=== PATIENT | male | born 1950 | race Caucasian/White ===

== ENCOUNTER 2016-08-09 17:05 | Inpatient (IN) | payer MEDICARE ==
[2016-08-09 17:26] VITALS: BMI 44.5
[2016-08-09] MEDS ORDERED: ACETAMINOPHEN 325 MG/TAB TABLET PO ONE (17:29)
[2016-08-09] MEDS ORDERED: Albuterol/Ipratropium Neb 3 ML NEB NEB ONE (17:42)
[2016-08-09 17:43] LABS: ALLEN'S TEST PASS; BEb 4.5 (+/- 2); TCO2 34.1 MMOL/L (23-27)
[2016-08-09 17:44] LABS: ABG Draw Site RRA
[2016-08-09 17:48] LABS: AUTOMATED BASOPHIL 0.6 % (0-2); AUTOMATED EOSINOPHIL 1.5 % (0-5); AUTOMATED LYMPH 10.7 % (17-44); AUTOMATED MONOCYTE 12.8 % (3-10); AUTOMATED NEUTROPHIL 74.4 % (45-76); MPV 8.4 fL (7.4-10.4)
[2016-08-09 17:59] LABS: PARTIAL THROMB. TIME 24.8 SEC (22-35)
--- NOTE | 2016-08-09 18:05 | EDPRACDOC ---
- General Information Chief Complaint: Dyspnea/Resp distress Stated Complaint: CONGESTION HX CONGESTIVE HEART FAILURE Time Seen by Provider: 08/09/16 17:27 Information Source: Patient Mode Of Arrival: Car Home Medications: Home Medications Amlodipine Besylate 10 mg PO DAILY 11/23/12 Clopidogrel Bisulfate [Plavix] 75 mg PO DAILY 09/11/15 Furosemide [Lasix] 20 mg PO DAILY PRN 09/11/15 Nitroglycerin [Nitrostat] 0.4 mg SL Q5M PRN 09/11/15 Aspirin (Enteric Coated) [Ecotrin] 81 mg PO DAILY 12/28/15 Pravastatin [Pravachol] 40 mg PO TUFR 12/28/15 Carvedilol [Coreg] 12.5 mg PO BID 05/21/16 Ibuprofen Tablet [Motrin] 600 mg PO Q6H PRN 05/21/16 HydrALAZINE (Cardiovascular) [Apresoline] 75 mg PO BID 08/09/16 Allergies/Adverse Reactions: Allergies Allergy/AdvReac Type Severity Reaction Status Date / Time MERCURECHROME Allergy See Uncoded 08/09/16 17:23 Comments METHIOLADE Allergy See Uncoded 08/09/16 17:23 Comments - History of Present Illness Onset: FEW DAYS HPI: PT HAS BEEN SOB WITH A COUGH FOR THE PAST FEW DAYS. THE PT SAID THAT HE HAS TAKEN EVERYTHING OTC THAT HE COULD THINK OF AND IS NOT GETTING BETTER. Shortness of Breath: Moderate Relevant History: Reports: None Cough: Reports: Non-productive Rhinorrhea: Reports: Clear Ear Symptoms: Reports: None SOB Worsens with: Reports: Exertion SOB Improves with: Reports: Nothing Associated Signs and symptoms: Reports: Cough, Fever, Nasal Symptoms ED Past Medical History - Patient Medical History Cardiac History: Reports: Coronary Artery Disease, Hypertension, Heart Attack ( x5), Cardiac Catheterization, Hypercholesterolemia GI/ History: Reports: Renal (Kidney) Cancer (RIGHT), Kidney (Renal Surgery) ( RIGHT NEPHRECTOMY) Musculoskeletal History: Reports: Arthritis, Osteoarthritis Psychological History: Denies: Depression Systemic History: Reports: Cancer (RIGHT KIDNEY) Surgical History: Reports: Angioplasty, Cardiac Catheterization, Hernia Surgery (UMBILICAL), Tonsillectomy/Adnoidectomy, Other (NEPHRECTOMY) - Family Medical History Reports: Hypertension (SON). Denies: Diabetes, Cancer, Stroke, Cardiac Disorders - Social Medical History Smoking Status: Never smoker ETOH: None Substance Abuse: None Lives With: Spouse Lives In: Home EDM Review of Systems - Review of Systems ROS Negative Except as Marked: Yes All systems reviewed and were negative except as marked Constitutional: Chills, Fever Respiratory: Cough, Shortness of Breath, Wheezing - Physical Exam Constitutional: Alert (Awake), Distress Oriented to: Time, Person, Place Last recorded Vital Signs: Last Vital Signs Temp 101.4 F H 08/09/16 17:23 Pulse 82 08/09/16 17:39 Resp 22 08/09/16 17:39 BP 179/83 08/09/16 17:39 Pulse Ox 82 L 08/09/16 17:39 Oxygen Pulse Oxygen Saturation 82 O2 Device Room Air Oxygen Flow Rate Fraction of Inspired Oxygen ( FIO2) - HEENT Head: Normal ( normocephalic) Eye Exam: Normal (PERRL, EOMI, Sclera white) Oropharynx: Membranes Dry ENT EAC: Normal TMJ: Normal Nose: No Symptoms Reported (septum midline) Neck: Normal (FROM, trachea at midline) - Respiratory/Cardiovascular Respiratory: Accessory Muscle Use, Diminished, Rhonchi, Tachypnea, Wheezes Cardiovascular: Tachycardia - GI Auscultation: Normal (NABS) Palpation: Normal (Soft,No rebound or guarding, non distended) Tenderness: Non tender Smith's Sign: Negative - Musculoskeletal Back: Normal (Non-Tender) Extremities: Normal (Normal tone, Pulses 2+ No cyanosis or edema, FROM) - Integumentary Skin: Normal, Warm, Dry Lymphatics: Normal (no adenopathy) - Neurologic Memory Impaired: Normal Motor Function: Normal (Normal tone, Pulses 2+ No cyanosis or edema, FROM) Cranial Nerve: Normal (CN II-X11 intact sensation, strength 5/5) Cerebellar: Normal Mood Description: Normal Thought: Coherent Perception: Normal ED SOB MDM - Results Result Diagrams: 08/09/16 17:34 08/09/16 17:34 Results: WBC 7.8 xk/uL (3.8-10.8) 08/09/16 17:34 RBC 4.92 xM/uL (4.70-6.10) 08/09/16 17:34 Hgb 14.8 g/dL (14.0-18.0) 08/09/16 17:34 Hct 46.1 % (42-52) 08/09/16 17:34 MCV 94 fL (80-94) 08/09/16 17:34 MCH 30.1 pg (27-32) 08/09/16 17:34 MCHC 32.1 g/dl (33-36) L 08/09/16 17:34 RDW 15.4 % (11.5-14.5) H 08/09/16 17:34 Plt Count 149 xk/uL (130-400) 08/09/16 17:34 MPV 8.4 fL (7.4-10.4) 08/09/16 17:34 Neut % (Auto) 74.4 % (45-76) 08/09/16 17:34 Lymph % (Auto) 10.7 % (17-44) L 08/09/16 17:34 [place] % (Auto) 12.8 % (3-10) H 08/09/16 17:34 Eos % (Auto) 1.5 % (0-5) 08/09/16 17:34 Baso % (Auto) 0.6 % (0-2) 08/09/16 17:34 Absolute Neuts (auto) 5.77 xk/uL (1.7-8.2) 08/09/16 17:34 Absolute Lymphs (auto) 0.78 xk/uL (0.65-4.75) 08/09/16 17:34 Puncture Site Rra 08/09/16 17:41 pH 7.330 pH UNITS (7.35-7.45) L 08/09/16 17:41 pCO2 61.0 mmHg (35-45) H 08/09/16 17:41 pO2 40.0 mmHg (80-100) L* 08/09/16 17:41 HCO3 32.2 MMOL/L (22-26) H 08/09/16 17:41 Total CO2 34.1 MMOL/L (23-27) H 08/09/16 17:41 Base Excess 4.5 (+/- 2) H 08/09/16 17:41 FiO2 % 21 08/09/16 17:41 Specimen Drawn By Ivis 08/09/16 17:41 Lab Results 08/09/16 08/09/16 17:41 17:34 WBC 7.8 RBC 4.92 Hgb 14.8 Hct 46.1 MCV 94 MCH 30.1 MCHC 32.1 L RDW 15.4 H Plt Count 149 MPV 8.4 Neut % (Auto) 74.4 Lymph % (Auto) 10.7 L [place] % (Auto) 12.8 H Eos % (Auto) 1.5 Baso % (Auto) 0.6 Absolute Neuts (auto) 5.77 Absolute Lymphs (auto) 0.78 Puncture Site Rra pH 7.330 L pCO2 61.0 H pO2 40.0 L* HCO3 32.2 H Total CO2 34.1 H Base Excess 4.5 H FiO2 % 21 Specimen Drawn By Dared - EKG EKG #1 EKG Time: 17:32 -: Yes EKG interpreted by me Rate: bpm: 80 [place]: Normal Rhythm: NSR Block: None Hypertrophy: None ST: Normal Comparison: 12/28/15 - Diagnostic Imaging Chest Image interpreted by: Radiologist Diagnostic Imaging Comments: . Bilateral lower lobe infiltrates, likely infectious. 2. Small mediastinal lymph nodes may be reactive. 3. Coronary artery disease. 4. Thoracic spondylosis. - Departure Yes I personally saw and evaluated the patient. Disposition: Admit IP To This Hospital Condition: Serious Final Diagnosis: Bilateral pneumonia, Fever, Acute respiratory failure with hypoxia Education/Counseling Given To: Patient Education/Counseling Given Regarding: Diagnosis, Treatment Referrals: Tatiana Cartagena NP [Primary Care Provider] - One Week Decision to Admit Time: 18:44 Decision to admit date: 08/09/16 Decision to admit: from ED - Physician Consulted Hospitalist Provider Called: Charles Castelan
[2016-08-09] MEDS ORDERED: Levofloxacin 750 mg/150 ml D5W 750 MG/150 ML RTU IV ONE (18:06)
--- NOTE | 2016-08-09 18:06 | DIRPT ---
CLINICAL DATA: Shortness of breath. EXAM: PORTABLE CHEST 1 VIEW COMPARISON: 12/28/2015 FINDINGS: Cardiomediastinal silhouette is normal. Mediastinal contours appear intact. There is no evidence of focal airspace consolidation, pleural effusion or pneumothorax. Osseous structures are without acute abnormality. Soft tissues are grossly normal. IMPRESSION: No active disease. Electronically Signed By: Bharat Goldman M.D. On: 08/09/2016 18:03
[2016-08-09 18:15] LABS: BLOOD UREA NITROGEN 26 MG/DL (9-20); CALC CORRECTED 9.4 MG/DL (8.4-10.2); CALCIUM 9.3 MG/DL (8.4-10.2); CALCULATED OSMOLALITY 283 MOs/Kg (270-290); CHLORIDE 104 mEq/L (98-107); GLUCOSE 147 MG/DL (70-99); SODIUM LEVEL 143 mEq/L (137-146); TOTAL PROTEIN 7.4 G/DL (6.3-8.2)
[2016-08-09 18:36] LABS: LEUKOCYTES/URINE NEG (NEGATIVE); NITRITE/URINE NEG (NEGATIVE); RBC/URINE 0-2 (0-2); URINE OCCULT BLOOD 1+ (NEG/TRACE); WBC/URINE 0-2 (0-2)
--- NOTE | 2016-08-09 18:39 | DIRPT ---
CLINICAL DATA: Shortness of breath and congestion for 3 days. EXAM: CT CHEST WITHOUT CONTRAST TECHNIQUE: Multidetector CT imaging of the chest was performed following the standard protocol without IV contrast. COMPARISON: Chest x-ray 08/09/2016 FINDINGS: Heart: Coronary artery calcifications are present. No pericardial effusion. Heart size is upper normal. Vascular structures: There is atherosclerotic calcification of the thoracic aorta. No aneurysm. Mediastinum/thyroid: The visualized portion of the thyroid gland has a normal appearance. Right peritracheal node is 11 mm in diameter. Small pre carinal node is 9 mm. No significant hilar adenopathy. Lungs/Airways: Within the lower lobes bilaterally, there are airspace filling opacities associated with air bronchograms in most likely representing infectious infiltrates. Right middle lobe calcified granuloma is present. Upper abdomen: Gallbladder is present. Chest wall/osseous structures: There is moderate to marked mid thoracic spondylosis. No suspicious lesions. IMPRESSION: 1. Bilateral lower lobe infiltrates, likely infectious. 2. Small mediastinal lymph nodes may be reactive. 3. Coronary artery disease. 4. Thoracic spondylosis. Electronically Signed By: Gloria Stubbs M.D. On: 08/09/2016 18:36
[2016-08-09] MEDS ORDERED: NITROGLYCERINE 0.4 MG TAB SL PRN (18:59)
[2016-08-09] MEDS ORDERED: FUROSEMIDE 20 MG TAB PO PRN (18:59)
--- NOTE | 2016-08-09 18:59 | HISTPHYS ---
- Chief Complaint Shortness of breath - History of Present Illness This is a pleasant 66-year-old male with a history of congestive heart failure who is being admitted the hospital [facility] due to bilateral pneumonia. The patient tells me that he has been in usual state of health until about 2 days ago, when he started to cough thick kadi colored sputum, and was short of breath with any kind of exertion. He has chronic lower extremity edema, this has remained stable. He denies any fevers or chills at home, no nausea or vomiting or rashes on the skin. No sick contacts. No pain in the abdomen. In particular to his coughing, he also noticed that he has very short of breath with exertion, and also feels very weak. Today, he took the garbage out and resultant of his driveway, he thought he was so weak he would not be able to make it back home. No therapies prior prior to arrival. - Medical History Cardiac History: Reports: Coronary Artery Disease, Hypertension, Heart Attack ( x5), Cardiac Catheterization, Hypercholesterolemia GI/ History: Reports: Renal (Kidney) Cancer (RIGHT), Kidney (Renal Surgery) ( RIGHT NEPHRECTOMY) Musculoskeletal History: Reports: Arthritis, Osteoarthritis Systemic History: Reports: Cancer (RIGHT KIDNEY) Psychological History: Denies: Depression - Surgical History Reports: Angioplasty, Cardiac Catheterization, Hernia Surgery (UMBILICAL), Tonsillectomy/Adnoidectomy, Other (NEPHRECTOMY) - Medictions/Allergies Allergies MERCURECHROME Allergy (Uncoded 08/09/16 17:23) See Comments CAUSED SORES TO GET INFECTED METHIOLADE Allergy (Uncoded 08/09/16 17:23) See Comments CAUSED SORES TO GET INFECTED Home Medications Amlodipine Besylate 10 mg PO DAILY 11/23/12 Clopidogrel Bisulfate [Plavix] 75 mg PO DAILY 09/11/15 Furosemide [Lasix] 20 mg PO DAILY PRN 09/11/15 Nitroglycerin [Nitrostat] 0.4 mg SL Q5M PRN 09/11/15 Aspirin (Enteric Coated) [Ecotrin] 81 mg PO DAILY 12/28/15 Pravastatin [Pravachol] 40 mg PO TUFR 12/28/15 Carvedilol [Coreg] 12.5 mg PO BID 05/21/16 Ibuprofen Tablet [Motrin] 600 mg PO Q6H PRN 05/21/16 HydrALAZINE (Cardiovascular) [Apresoline] 75 mg PO BID 08/09/16 - Family History Reports: Hypertension (SON). Denies: Diabetes, Cancer, Stroke, Cardiac Disorders - Social History Smoking Status: Never smoker - Review of Systems Yes All systems reviewed and were negative except as marked (And as mentioned in HPI above) - Physical Exam Vital Signs: Initial Vitals Temperature 101.4 F H 08/09/16 17:23 Pulse Rate 78 08/09/16 17:23 Respiratory Rate 24 08/09/16 17:23 Blood Pressure 178/83 08/09/16 17:23 Pulse Oxygen Saturation 78 L 08/09/16 17:23 Constitutional: Alert (Awake, Fully oriented, well appearing. No apparent distress), Distress Oriented to: Time, Person, Place Exam: Able to speak 1 or 2 sentences before getting winded. - HEENT Head: Normal (normocephalic,atraumatic, trachea midline) Eye: Normal (EOMI, Sclera white) Oropharynx: Normal (moist) Nose: No Symptoms Reported (without discharge or bleeding) Respiratory: Diminished. negative: Rhonchi, Wheezes Cardiovascular: Normal (RRR, no murmurs, rubs or gallops) - GI Palpation: Normal (soft, non distended and nontender) - Musculoskeletal Extremities: Edema (He has 1 to 2+ tight pitting edema in his bilateral lower extremities. He and his tell me this is very normal for him.) - Integumentary Skin: Normal (no rashes or lesions) - Neurologic Cranial Nerve: Normal (CN II-XII intact) Mood Description: Normal (Fully oriented and appropiate affect) - Focused CV Perfusion Exam Vital Signs: Last Vital Signs Temp 101.4 F H 08/09/16 17:23 Pulse 73 08/09/16 18:33 Resp 20 08/09/16 18:33 BP 148/72 08/09/16 18:33 Pulse Ox 94 08/09/16 18:33 - Lab Results Laboratory Tests 08/09/16 08/09/16 08/09/16 17:34 17:34 17:34 WBC 7.8 Hgb 14.8 Hct 46.1 Plt Count 149 INR 1.0 pH pCO2 pO2 Potassium 4.2 BUN 26 H Creatinine 1.60 H 08/09/16 17:41 WBC Hgb Hct Plt Count INR pH 7.330 L pCO2 61.0 H pO2 40.0 L* Potassium BUN Creatinine - Diagnostic Findings ct chest: 1. Bilateral lower lobe infiltrates, likely infectious. 2. Small mediastinal lymph nodes may be reactive. 3. Coronary artery disease. 4. Thoracic spondylosis. - Assessment (1) Bilateral pneumonia J18.9 - PNEUMONIA, UNSPECIFIED ORGANISM Acute Qualifiers: Pneumonia type: P Aspiration pneumonia type: A Lung location: L Chest x-ray was clear, but CT scan of the chest shows bilateral pneumonia. Patient is being admitted to the hospital to telemetry floor, with supplemental oxygen as needed to be weaned as tolerated. He will receive IV Levaquin, respiratory therapy consult and pneumonia education. Note that evidence based care pneumonia order set has been utilized. Will plan on rechecking a chest x- ray in the morning. (2) CHF (congestive heart failure) I50.9 - HEART FAILURE, UNSPECIFIED Acute Qualifiers: Congestive heart failure type: C Congestive heart failure chronicity: C Continue current medications which she takes at home. No evidence of acute CHF exacerbation. Will be cautious with fluid administration. (3) Acute respiratory failure with hypoxia J96.01 - ACUTE RESPIRATORY FAILURE WITH HYPOXIA Acute Due to bilateral pneumonia. (4) Fever R50.9 - FEVER, UNSPECIFIED Acute Qualifiers: Fever type: F Encounter type: E Fever of 101 here in the emergency department. (5) Hyperlipidemia E78.5 - HYPERLIPIDEMIA, UNSPECIFIED Acute Qualifiers: Hyperlipidemia type: H Continue home statin. (6) Hypertension I10 - ESSENTIAL (PRIMARY) HYPERTENSION Acute Qualifiers: Hypertension type: H Continue home antihypertensive medications.
[2016-08-09] MEDS ORDERED: ONDANSETRON HCL 4 MG/2 ML VIAL IV PRN (19:00)
[2016-08-09] MEDS: ENOXAPARIN 80 MG/0.8 ML PFS SQ SCH (21:02)
[2016-08-09] MEDS: CARVEDILOL 12.5 MG TAB PO SCH (21:04)
[2016-08-09] MEDS: ACETAMINOPHEN 325 MG/TAB TABLET PO PRN (23:27)
[2016-08-10 07:06] LABS: MPV 8.4 fL (7.4-10.4)
[2016-08-10 07:09] LABS: BLOOD UREA NITROGEN 25 MG/DL (9-20); CALCIUM 8.8 MG/DL (8.4-10.2); CALCULATED OSMOLALITY 278 MOs/Kg (270-290); CHLORIDE 103 mEq/L (98-107); GLUCOSE 115 MG/DL (70-99); SODIUM LEVEL 142 mEq/L (137-146)
--- NOTE | 2016-08-10 09:01 | DIRPT ---
CLINICAL DATA: Four day history of shortness of breath and cough EXAM: CHEST 2 VIEW COMPARISON: CT scan of the chest and chest x-ray of August 09, 2015 FINDINGS: The lungs are adequately inflated. Patchy alveolar infiltrates in both lower lobes are observed. There is no pleural effusion. The heart is top-normal in size. The pulmonary vascularity is not engorged. There is mild soft tissue fullness in the paratracheal regions which is stable. There is mild multilevel degenerative disc disease with endplate spurring in the thoracic spine. IMPRESSION: Bibasilar pneumonia. The findings are slightly more conspicuous today. Electronically Signed By: Christiano Davis M.D. On: 08/10/2016 08:58
[2016-08-10] MEDS: AMLODIPINE 10 MG TAB PO SCH (09:06)
[2016-08-10] MEDS: CLOPIDOGREL 75 MG TAB PO SCH (09:06)
[2016-08-10] MEDS: CARVEDILOL 12.5 MG TAB PO SCH ×2 (09:06→20:26)
[2016-08-10] MEDS: ACETAMINOPHEN 325 MG/TAB TABLET PO PRN (12:35)
[2016-08-10] MEDS: Albuterol/Ipratropium Neb 3 ML NEB NEB PRN ×2 (14:27→23:09)
[2016-08-10] MEDS ORDERED: OXYCODONE HCL 5 MG TABLET PO PRN (15:28)
--- NOTE | 2016-08-10 15:31 | GENMEDPROG ---
Subjective Note: Patient in bed responsive follows commands. Visibly short of breath with audible wheezes and rhonchi. Coughing producing fair amount of thick brownish sputum. Dyspneic with minimal physical exertion. Denies any hemoptysis. Notes Reviewed: Yes Events from last night noted and discussed with Clinical Staff Current Medication List: Reviewed Currently: Reports: Cough, Wheezing, VIZCAINO, SOB, Sputum, Reflux Sx DVT Prophylaxis: Yes - Physical Examination Vital Signs and I&O: Last Vital Signs Temp 98.0 F 08/10/16 14:00 Pulse 67 08/10/16 15:17 Resp 08/10/16 14:00 BP 109/52 L 08/10/16 14:00 Pulse Ox 93 08/10/16 14:07 Oxygen Pulse Oxygen Saturation 93 O2 Device Nasal Cannula Oxygen Flow Rate 4 Fraction of Inspired Oxygen ( FIO2) Intake & Output 08/07/16 08/08/16 08/09/16 08/10/16 23:59 23:59 23:59 23:59 Intake Total 85 240 Output Total 450 575 Balance -365 -335 Patient's weight 153.496 kg General: Alert, Oriented x3, Cooperative, Moderate distress HEENT: Normal, PERRLA, EOMI, Anicteric Sclera Neck: Non-tender, Normal Trachea alignment, Limited range of motion, JVD Lymphatics: Normal Respiratory: Diminished, Rhonchi, Wheezes Cardiovascular: Regular rate, Normal S1, Normal S2, Murmurs GI: Normal bowel sounds, Soft, Non tender, No hepatospenomegaly, No masses Extremities/Musculoskeletal: Edema, Clubbing, Cyanosis, DJD Skin: Warm,Dry and Intact, No rashes, No breakdown Neurological: Normal speech, Cranial nerves 3-12 NL Psych/Mental Status: Anxious Lab/DI/Studies Reviewed: Allergies MERCURECHROME Allergy (Uncoded 08/09/16 17:23) See Comments CAUSED SORES TO GET INFECTED METHIOLADE Allergy (Uncoded 08/09/16 17:23) See Comments CAUSED SORES TO GET INFECTED Last Vital Signs Temp 98.0 F 08/10/16 14:00 Pulse 67 08/10/16 15:17 Resp 08/10/16 14:00 BP 109/52 L 08/10/16 14:00 Pulse Ox 93 08/10/16 14:07 08/10/16 06:10 08/10/16 06:10 Abnormal Lab Results 08/09/16 08/09/16 08/09/16 17:34 17:34 17:41 RBC Hgb Hct MCHC 32.1 L RDW 15.4 H Lymph % (Auto) 10.7 L [place] % (Auto) 12.8 H pH 7.330 L pCO2 61.0 H pO2 40.0 L* HCO3 32.2 H Total CO2 34.1 H Base Excess 4.5 H BUN 26 H Creatinine 1.60 H Estimated GFR (MDRD) 43 L Glucose 147 H Urine Protein Urine Occult Blood 08/09/16 08/10/16 08/10/16 18:10 06:10 06:10 RBC 4.48 L Hgb 13.5 L Hct 41.9 L MCHC 32.2 L RDW 15.2 H Lymph % (Auto) [place] % (Auto) pH pCO2 pO2 HCO3 Total CO2 Base Excess BUN 25 H Creatinine 1.50 H Estimated GFR (MDRD) 47 L Glucose 115 H Urine Protein 2+ H Urine Occult Blood 1+ H - Assessment (1) Acute respiratory failure with hypoxia Acute J96.01 - ACUTE RESPIRATORY FAILURE WITH HYPOXIA Comment/Plan: Continue supplemental O2 monitor pulmonary status. Repeat chest x-ray and ABG in the morning. (2) Bilateral pneumonia Acute J18.9 - PNEUMONIA, UNSPECIFIED ORGANISM Qualifiers: Pneumonia type: due to unspecified organism Aspiration pneumonia type: A Lung location: L Comment/Plan: Patient still profoundly hypoxic and severely symptomatic. Continue broad-spectrum antibiotics nebulized bronchodilators and aggressive pulmonary toileting. (3) CHF (congestive heart failure) Acute I50.9 - HEART FAILURE, UNSPECIFIED Qualifiers: Congestive heart failure type: unspecified congestive heart failure type Congestive heart failure chronicity: acute on chronic Qualified Code(s): I50.9 - Heart failure, unspecified Comment/Plan: Continue diuretic IV. Monitor fluid balance and weight. 2D echo will be obtained (4) Hypertension Chronic I10 - ESSENTIAL (PRIMARY) HYPERTENSION Qualifiers: Hypertension type: essential hypertension Qualified Code(s): I10 - Essential (primary) hypertension Comment/Plan: Continue home antihypertensive medications. (5) CKD (chronic kidney disease) stage 2, GFR 60-89 ml/min Chronic N18.2 - CHRONIC KIDNEY DISEASE, STAGE 2 (MILD) Comment/Plan: Single kidney. Monitor renal function avoid any nephrotoxins. (6) CAD (coronary artery disease) Acute I25.10 - ATHSCL HEART DISEASE OF [place] CORONARY ARTERY W/O ANG PCTRS Qualifiers: Coronary Disease-Associated Artery/Lesion type: [place] artery [place] vs. transplanted heart: [place] heart Associated angina: without angina Qualified Code(s): I25.10 - Atherosclerotic heart disease of [place] coronary artery without angina pectoris Comment/Plan: Continue home regimen of aspirin Plavix and Coreg. (7) Dyslipidemia Chronic E78.5 - HYPERLIPIDEMIA, UNSPECIFIED Comment/Plan: Continue statin Case Care Discussed with: Patient, Family, Nursing Staff, Respiratory Therapy, Blade Operator Education/Counseling Given To: Patient Education/Counseling Given Regarding: Diagnosis Total Time: 60 min . Critical Care: Yes Code: 291
[2016-08-10] MEDS ORDERED: FLUTICASONE PROPIONATE 16 GM BOT NAS SCH (16:00)
[2016-08-10] MEDS ORDERED: NS 500 ML IV ONE (17:20)
[2016-08-10] MEDS ORDERED: DEXTROSE 25 GM/50 ML PFS IV PRN (17:27)
[2016-08-10] MEDS ORDERED: GLUCOSE (ORAL GEL) 15 GM TUBE PO PRN (17:27)
[2016-08-10] MEDS ORDERED: GLUCAGON 1 MG VIAL SQ PRN (17:27)
[2016-08-10] MEDS: REGULAR INSULIN 100 UNITS/ML - 3 ML VIAL SQ SCH (17:45)
[2016-08-10] MEDS: Levofloxacin 750 mg/150 ml D5W 750 MG/150 ML RTU IV SCH (17:46)
[2016-08-10] MEDS: Furosemide 100 MG/10 ML VIAL IV SCH (17:48)
[2016-08-10] MEDS: METHYLPREDNISOLONE 125 MG/2 ML VIAL IV SCH (18:23)
[2016-08-10] MEDS: CEFTRIAXONE 1 GM in D5W 100 ML IV SCH (20:16)
[2016-08-10] MEDS: GUAIFENESIN 600 MG LA TAB PO SCH (20:24)
[2016-08-10] MEDS: ENOXAPARIN 80 MG/0.8 ML PFS SQ SCH (20:28)
[2016-08-10] MEDS: Albuterol/Ipratropium Neb 3 ML NEB NEB SCH (20:57)
[2016-08-10] MEDS ORDERED: PRAVASTATIN 40 MG TABLET PO SCH (21:00)
[2016-08-11] MEDS: METHYLPREDNISOLONE 125 MG/2 ML VIAL IV SCH ×5 (00:58→23:49)
[2016-08-11] MEDS: REGULAR INSULIN 100 UNITS/ML - 3 ML VIAL SQ SCH ×5 (00:59→23:48)
[2016-08-11] MEDS: Albuterol/Ipratropium Neb 3 ML NEB NEB SCH ×4 (01:12→20:30)
--- NOTE | 2016-08-11 03:44 | HIMCONS ---
DATE OF CONSULT: REQUESTING PHYSICIAN: Cali Gallardo MD REASON FOR CONSULTATION: Respiratory failure and sleep apnea. HISTORY OF PRESENT ILLNESS: The patient is a 66-year-old obese male who has past medical history significant for congestive heart failure and has not been doing well for few days prior to his admission when he started to having thick brownish phlegm with occasional blood streak in it. He has been having some lower extremity edema, has been having minimal fevers. No chills. No nausea, vomiting, diarrhea, or constipation. No abdominal pain, leg pains, or chest pains. He has been more and more short of breath, eventually ended up in the hospital where he was found to have bilateral basal pneumonia and was admitted. The patient has a history of snoring, witnessed apneas, waking up tired in the morning, history of fatigue, waking up with headache, etc. PAST MEDICAL HISTORY: Significant for coronary artery disease, hypertension, history of IA x5, cardiac catheterization, hypercholesterolemia, kidney cancer on the right side, status post right nephrectomy, history of arthritis, osteoarthritis, right kidney cancer surgery, and depression. PAST SURGICAL HISTORY: Angioplasty, cardiac catheterization, hernia surgery of umbilicus, tonsillectomy, adenoidectomy, nephrectomy. ALLERGIES: THE PATIENT IS ALLERGIC TO MERTHIOLATE AND MERCUROCHROME ALLERGIES. MEDICATIONS: In the chart were noted. FAMILY HISTORY: Significant for son having hypertension. SOCIAL HISTORY: There is no history of smoking, drinking, or drug abuse. REVIEW OF SYSTEMS: Detailed review of systems is negative except for as mentioned in the history of present illness. PHYSICAL EXAMINATION: VITAL SIGNS: Temperature is 98 degrees Fahrenheit, pulse is 66, respiratory rate is 22, blood pressure 109/52, pulse ox is 81% on 2 liters nasal cannula, went up to 93 on 3 L nasal cannula. CHEST: Bibasilar rales. No wheezing. HEART: S1, S2. Regular. No murmur. EXTREMITIES: No clubbing, cyanosis. The patient has 1+ bilateral ankle edema. ABDOMEN: Soft and nontender. Bowel sounds present. Hepatosplenomegaly is absent. NEURO: Grossly nonfocal. The patient moving all extremities. LABORATORY DATA: White count was 6.9, hemoglobin 13.5, hematocrit 41.9, platelets are 132. PT and INR within normal limits. Blood gas showed a pH of 7.36, pCO2 of 62, and PO2 was 40 on room air. Sodium 142, potassium 4.2, chloride 103, CO2 of 31, BUN is 25, creatinine is 1.5, glucose is 115. LFTs are within normal limits. IMAGING REPORTS: Chest x-ray and chest CAT scan was seen personally. The patient seems to have bilateral basal infiltrates. IMPRESSION: 1. Acute respiratory failure which is multifactorial including pneumonia. This is the major cause, but cannot rule out asthma and obesity causing obesity hypoventilation syndrome. 2. Significant risk of obstructive sleep apnea. 3. Multiple other medical issues. PLAN: The patient was admitted and placed on Levaquin 750 mg daily. I would add Rocephin to it. ( ) cultures for SPECT as negative. I had a prolonged discussion with the patient regarding his requirements for nebulizer use and DVT and GI prophylaxis. Also discussed with the patient regarding the risks for having sleep apnea including heart attacks and strokes and depression and car accidents, high blood pressure, etc. I think, the patient should have sleep study done and should be treated for obstructive sleep apnea, given the fact that he already has congestive heart failure and IA in the past. He agrees and understand and would be followed up with me in my office. I would continue other supportive care on this patient and start the patient on Rocephin as mentioned above. Thank you very much for the consultation and I will follow the patient with you. [id number]
[2016-08-11] MEDS: Furosemide 100 MG/10 ML VIAL IV SCH (04:31)
[2016-08-11] MEDS: PANTOPRAZOLE 40 MG TAB PO SCH (04:37)
[2016-08-11 07:23] LABS: MPV 8.3 fL (7.4-10.4)
[2016-08-11 07:31] LABS: BLOOD UREA NITROGEN 33 MG/DL (9-20); CALCULATED OSMOLALITY 284 MOs/Kg (270-290); CHLORIDE 101 mEq/L (98-107); GLUCOSE 207 MG/DL (70-99); SODIUM LEVEL 141 mEq/L (137-146)
--- NOTE | 2016-08-11 07:56 | PCM.PULM ---
Chief Complaint: Acute respiratory failure with hypoxia Bacterial pneumonia CHF Obstructive sleep apnea Hypoxia Uneventful overnight with no acute distress Patient in bed alert and responsive. Current complaints: SOB,VIZCAINO,cough,sputum,wheeze. Denies chest pain Medication list and notes reviewed:yes,Events from last night noted and discussed with Clinical Staff DVT prophylaxis:yes - Physical Examination Vital Signs and I&O: Last Vital Signs Temp 98.7 F 08/11/16 05:49 Pulse 73 08/11/16 05:49 Resp 20 08/11/16 05:49 BP 128/61 08/11/16 05:49 Pulse Ox 93 08/11/16 05:49 Oxygen Pulse Oxygen Saturation 93 O2 Device Nasal Cannula Oxygen Flow Rate 3 Fraction of Inspired Oxygen ( FIO2) Intake & Output 08/08/16 08/09/16 08/10/16 08/11/16 23:59 23:59 23:59 23:59 Intake Total 85 1080 329 Output Total 450 1700 500 Balance -365 -277 -113 Patient's weight 153.496 kg 153.966 kg General: Alert, Oriented x3, Cooperative, No acute distress, Well appearing, Well nourished, Obese Respiratory: Diminished, Rhonchi, Wheezes (Scattered bilateral) Cardiovascular: Regular rate, Regular rate and rhythm, Normal S1, No Gallops, Rubs/Murmurs, Normal S2, Good Pedal Pulses GI: Normal bowel sounds, Soft, Non tender, No hepatospenomegaly, No masses Extremities/Musculoskeletal: Normal pulses, Edema (trace BLEs) Skin: Warm,Dry and Intact, No rashes, No breakdown, No significant lesion Neurological: Normal Steady Gait, Normal speech, Strength at 5/5 X4 ext, Cranial nerves 3-12 NL Psych/Mental Status: Appropriate Result Diagrams: 08/11/16 07:07 08/11/16 07:07 Labs (last 24 hours): Laboratory Results - last 24 hr 08/10/16 08/11/16 08/11/16 17:44 00:56 05:15 WBC RBC Hgb Hct MCV MCH MCHC RDW Plt Count MPV Sodium Potassium Chloride Carbon Dioxide Anion Gap BUN Creatinine Estimated GFR (MDRD) Glucose POC Capillary Glucose 178 H 146 H 148 H Calculated Osmolality Calcium Magnesium 08/11/16 08/11/16 07:07 07:07 WBC 6.8 RBC 4.53 L Hgb 13.7 L Hct 41.9 L MCV 92 MCH 30.3 MCHC 32.8 L RDW 14.6 H Plt Count 160 MPV 8.3 Sodium 141 Potassium 4.3 Chloride 101 Carbon Dioxide 27 Anion Gap 17 H BUN 33 H Creatinine 1.70 H Estimated GFR (MDRD) 41 L Glucose 207 H POC Capillary Glucose Calculated Osmolality 284 Calcium 9.0 Magnesium 1.90 Lab/DI/Studies Reviewed: Microbiology 08/09/16 17:46 Sputum Gram Stain - Final 08/09/16 17:46 Sputum Sputum Culture - Final Normal oral/respiratory nell present 08/09/16 18:10 Urine - Clean Catch - Midstream Urine Culture - Preliminary <culture reincubated> Medications Carvedilol (Coreg) 12.5 mg PO BID [facility] Stop: 08/23/16 20:59 Last Admin: 08/10/16 20:26 Dose: 12.5 mg Clopidogrel Bisulfate (Plavix) 75 mg PO DAILY [facility] Stop: 08/24/16 08:59 Last Admin: 08/10/16 09:06 Dose: 75 mg Pantoprazole Sodium (Protonix) 40 mg PO 0600 [facility] Stop: 08/24/16 16:59 Last Admin: 08/11/16 04:37 Dose: 40 mg Acetaminophen (Tylenol Tablet) 650 mg PO Q6H PRN PRN Reason: Mild Pain or Fever Stop: 08/23/16 16:59 Last Admin: 08/10/16 12:35 Dose: 650 mg Albuterol/Ipratropium (Duoneb) 3 ml NEB Q2H PRN PRN Reason: Wheezing Stop: 08/23/16 16:59 Last Admin: 08/10/16 23:09 Dose: 3 ml Albuterol/Ipratropium (Duoneb) 3 ml NEB RTQ6 [facility] Stop: 08/24/16 16:59 Last Admin: 08/11/16 09:01 Dose: 3 ml Amlodipine Besylate (Norvasc) 10 mg PO DAILY [facility] Stop: 08/24/16 08:59 Last Admin: 08/10/16 09:06 Dose: 10 mg Ceftriaxone Sodium 1 gm/ (Dextrose) 100 mls @ 100 mls/hr IV Q24H [facility] Stop: 08/17/16 19:59 Last Admin: 08/10/16 20:16 Dose: 100 mls/hr Enoxaparin Sodium (Lovenox) 75 mg SQ Q24H [facility] Stop: 08/23/16 21:59 Last Admin: 08/10/16 20:28 Dose: 75 mg Furosemide (Lasix) 40 mg IV Q12H [facility] Stop: 08/24/16 17:59 Last Admin: 08/11/16 04:31 Dose: 40 mg Guaifenesin (Mucinex) 1,200 mg PO Q12 [facility] Stop: 08/24/16 16:59 Last Admin: 08/10/16 20:24 Dose: 1,200 mg Levofloxacin/Dextrose (Levaquin 750 Mg) 750 mg in 150 mls @ 100 mls/hr IV Q24H [facility] Stop: 08/17/16 17:59 Last Admin: 08/10/16 17:46 Dose: 100 mls/hr Insulin Human Regular (Humulin R) 0 units SQ Q6 [facility] PRN Reason: Protocol Stop: 08/24/16 16:59 Last Admin: 08/11/16 05:27 Dose: Not Given Methylprednisolone Sodium Succinate (Solu-Medrol) 60 mg IV Q6H [facility] Stop: 08/24/16 16:59 Last Admin: 08/11/16 04:32 Dose: 60 mg Pravastatin Sodium (Pravachol) 40 mg PO TUFR [facility] Stop: 08/24/16 20:59 Last Admin: 08/10/16 20:24 Dose: 40 mg Oxycodone HCl (Oxycodone Immediate Release (Oxyir)) 5 mg PO Q4H PRN PRN Reason: Moderate to Severe Pain Stop: 08/24/16 16:59 Ondansetron HCl (Zofran) 4 mg IV Q6H PRN PRN Reason: Nausea/Vomiting Stop: 08/23/16 16:59 Nitroglycerin (Ntg (Nitrostat Sublingual Tab)) 0.4 mg SL Q5M PRN PRN Reason: Chest Pain or Discomfort Stop: 08/23/16 18:58 - Assessment/Plan (1) Acute respiratory failure with hypoxia Acute J96.01 - ACUTE RESPIRATORY FAILURE WITH HYPOXIA Comment/Plan: Patient has been on Solu-Medrol 60 mg IV q.6 hours for his COPD exacerbation and bilateral basal infiltrates he is on Rocephin and Levaquin along with oxygen and BiPAP and nebulizers. I would cut down the Solu-Medrol to 40 mg IV q.6 hours patient is going to continue to be on Rocephin and Levaquin and would follow the patient closely for development of complications continue DVT and GI prophylaxis and ambulate the patient as needed patient is going to need an outpatient sleep study and pulmonary function test (2) Bilateral pneumonia Acute J18.9 - PNEUMONIA, UNSPECIFIED ORGANISM due to unspecified organism A L Comment/Plan: Continue Rocephin and Levaquin for now (3) CHF (congestive heart failure) Acute I50.9 - HEART FAILURE, UNSPECIFIED unspecified congestive heart failure type acute on chronic I50.9 - Heart failure, unspecified Comment/Plan: Continue gentle diuresis (4) Obstructive sleep apnea (adult) (pediatric) Acute G47.33 - OBSTRUCTIVE SLEEP APNEA (ADULT) (PEDIATRIC) (5) Obstructive sleep apnea (adult) (pediatric) Acute G47.33 - OBSTRUCTIVE SLEEP APNEA (ADULT) (PEDIATRIC) Comment/Plan: I am pretty sure that patient has sleep apnea needs to be treated given his baseline heart issues I would continue the BiPAP while the patient is sleeping here in the hospital and would get a sleep study done as an outpatient patient was informed about the risk that he has by virtue of having sleep apnea
[2016-08-11] MEDS: CLOPIDOGREL 75 MG TAB PO SCH (09:08)
[2016-08-11] MEDS: AMLODIPINE 10 MG TAB PO SCH (09:08)
[2016-08-11] MEDS: CARVEDILOL 12.5 MG TAB PO SCH ×2 (09:08→20:22)
[2016-08-11] MEDS: GUAIFENESIN 600 MG LA TAB PO SCH ×2 (09:08→20:22)
[2016-08-11] MEDS: FLUTICASONE PROPIONATE 16 GM BOT NAS SCH (09:09)
--- NOTE | 2016-08-11 15:47 | CAPUECHO ---
INDICATION: SOB HEIGHT: 185.4 cm (6 ft 1.0 in) WEIGHT: 153.3 kg (338.0 lbs) BP: 128/61 BSA: 2.022754 m MEASUREMENTS 2D RVIDd: 2.9 cm LVOT Diam: 2.3 cm EF Biplane: 56.64 % LAESV MOD A4C: 48.9 ml LAESV MOD A2C: 53.2 ml LAESV Index (A-L): 20.77 ml/m M-MODE IVSd: 1.3 cm LVIDd: 5.5 cm LVPWd: 1.2 cm LVIDs: 3.4 cm EF(Teich): 68 % Ao Diam: 3.4 cm LA Diam: 4.1 cm DOPPLER MV E Howard: 1.15 m/s MV A Howard: 0.93 m/s MV PHT: 52.28 ms MVA By PHT: 4.21 cm LVOT Vmax: 1.42 m/s AV Vmax: 2.04 m/s FINDINGS ------- Procedure:2D images, m-mode, color and spectral Doppler were obtained and reviewed. ECG rhythm:Sinus rhythm. Study quality:This was a technically difficult study with suboptimal views. Patient on O2 with low sats. Unable to use Definity contrast. Left Ventricle:The left ventricular size is normal. There is mild concentric left ventricular hype rtrophy. There is normal global left ventricular contractility. Overall left ventricular systoli c function is normal with, an EF between 60 - 65 %. The diastolic filling pattern indicates impair ed relaxation. Right Ventricle:The right ventricle is normal in size and function. Left Atrium:The left atrium is mildly dilated. Right Atrium:The right atrium is normal in size and function. Aortic Valve:The aortic valve was not well visualized. Mitral Valve:Normal appearing mitral valve. No mitral regurgitation. Tricuspid Valve:The tricuspid valve appears structurally normal. No regurgitation noted Unable t o estimate RVSP due to inadequate TR jet spectral doppler profile. Pulmonic Valve:The pulmonic valve is normal. There is no pulmonic regurgitation present. Aorta:The aortic root, ascending aorta and aortic arch not visualized. IVC:The inferior vena cava is mildly dilated, collapses. Pericardium:Echo free space may represent effusion or a pericardial fat pad. CONCLUSIONS 1. Overall left ventricular systolic function is normal with, an EF between 60 - 65 %. 2. The diastolic filling pattern indicates impaired relaxation. 3. The left atrium is mildly dilated. Electronically Signed By: Luis Lozoya MD -- Electronically Signed On: 15:47:24
[2016-08-11] MEDS: Levofloxacin 750 mg/150 ml D5W 750 MG/150 ML RTU IV SCH (18:00)
--- NOTE | 2016-08-11 18:37 | GENMEDPROG ---
Subjective Note: Patient in bed responsive follows commands, breathing slightly better, still coughing producing fair amount thick sputum still dyspneic with minimal physical exertion. Responded to IV diuretic. Denies any hemoptysis Notes Reviewed: Yes Events from last night noted and discussed with Clinical Staff Current Medication List: Reviewed Currently: Reports: Cough, Wheezing, VIZCAINO, SOB, Sputum, Reflux Sx DVT Prophylaxis: Yes - Physical Examination Vital Signs and I&O: Last Vital Signs Temp 98.0 F 08/11/16 17:34 Pulse 70 08/11/16 17:34 Resp 20 08/11/16 17:34 BP 138/67 08/11/16 17:34 Pulse Ox 91 08/11/16 17:34 Oxygen Pulse Oxygen Saturation 91 O2 Device Nasal Cannula Oxygen Flow Rate 3 Fraction of Inspired Oxygen ( FIO2) Intake & Output 08/08/16 08/09/16 08/10/16 08/11/16 23:59 23:59 23:59 23:59 Intake Total 85 1080 1185 Output Total 450 1700 1351 Balance -365 -927 -143 Patient's weight 153.496 kg 153.966 kg General: Alert, Oriented x3, Cooperative, Moderate distress HEENT: Normal, PERRLA, EOMI, Anicteric Sclera Neck: Non-tender, Normal Trachea alignment, Normal inspection, Limited range of motion, JVD Lymphatics: Normal Respiratory: Diminished, Rhonchi, Wheezes Cardiovascular: Regular rate, Normal S1, Normal S2, Murmurs GI: Normal bowel sounds, Soft, Non tender, No hepatospenomegaly, No masses Extremities/Musculoskeletal: Edema, Clubbing, Cyanosis, DJD Skin: Warm,Dry and Intact, No rashes, No breakdown Neurological: Normal speech, Cranial nerves 3-12 NL Psych/Mental Status: Anxious Lab/DI/Studies Reviewed: Allergies MERCURECHROME Allergy (Uncoded 08/09/16 17:23) See Comments CAUSED SORES TO GET INFECTED METHIOLADE Allergy (Uncoded 08/09/16 17:23) See Comments CAUSED SORES TO GET INFECTED 08/11/16 07:07 08/11/16 07:07 Last Vital Signs Temp 98.0 F 08/11/16 17:34 Pulse 70 08/11/16 17:34 Resp 20 08/11/16 17:34 BP 138/67 08/11/16 17:34 Pulse Ox 91 08/11/16 17:34 Abnormal Lab Results 08/11/16 08/11/16 08/11/16 00:56 05:15 07:07 RBC Hgb Hct MCHC RDW Anion Gap 17 H BUN 33 H Creatinine 1.70 H Estimated GFR (MDRD) 41 L Glucose 207 H POC Capillary Glucose 146 H 148 H 08/11/16 08/11/16 08/11/16 07:07 11:15 16:02 RBC 4.53 L Hgb 13.7 L Hct 41.9 L MCHC 32.8 L RDW 14.6 H Anion Gap BUN Creatinine Estimated GFR (MDRD) Glucose POC Capillary Glucose 163 H 171 H - Assessment (1) Acute respiratory failure with hypoxia Acute J96.01 - ACUTE RESPIRATORY FAILURE WITH HYPOXIA Comment/Plan: Continue O2 nebs and pulmonary toilet. Monitor pulmonary status. (2) Bilateral pneumonia Acute J18.9 - PNEUMONIA, UNSPECIFIED ORGANISM Qualifiers: Pneumonia type: due to unspecified organism Aspiration pneumonia type: A Lung location: L Comment/Plan: Continue broad-spectrum antibiotics nebulized bronchodilators and mucolytics (3) CHF (congestive heart failure) Acute I50.9 - HEART FAILURE, UNSPECIFIED Qualifiers: Congestive heart failure type: diastolic Congestive heart failure chronicity: acute on chronic Qualified Code(s): I50.33 - Acute on chronic diastolic (congestive) heart failure Comment/Plan: Continue diuretic IV. Monitor fluid balance and weight. 2D echo shows diastolic dysfunction with EF between 60 and 65% (4) Hypertension Chronic I10 - ESSENTIAL (PRIMARY) HYPERTENSION Qualifiers: Hypertension type: essential hypertension Qualified Code(s): I10 - Essential (primary) hypertension Comment/Plan: Continue home antihypertensive medications. (5) CKD (chronic kidney disease) stage 2, GFR 60-89 ml/min Chronic N18.2 - CHRONIC KIDNEY DISEASE, STAGE 2 (MILD) Comment/Plan: Single kidney. Monitor renal function avoid any nephrotoxins. (6) CAD (coronary artery disease) Acute I25.10 - ATHSCL HEART DISEASE OF [place] CORONARY ARTERY W/O ANG PCTRS Qualifiers: Coronary Disease-Associated Artery/Lesion type: [place] artery [place] vs. transplanted heart: [place] heart Associated angina: without angina Qualified Code(s): I25.10 - Atherosclerotic heart disease of [place] coronary artery without angina pectoris Comment/Plan: Continue home regimen of aspirin Plavix and Coreg. (7) Dyslipidemia Chronic E78.5 - HYPERLIPIDEMIA, UNSPECIFIED Comment/Plan: Continue statin (8) FADIA (obstructive sleep apnea) Acute G47.33 - OBSTRUCTIVE SLEEP APNEA (ADULT) (PEDIATRIC) Comment/Plan: [place] CPAP therapy at night Case Care Discussed with: Patient, Consultants, Family, Nursing Staff, Respiratory Therapy, Panel Installer Education/Counseling Given To: Patient Education/Counseling Given Regarding: Diagnosis, Treatment, Prognosis, Follow Up Total Time: 45 min Critical Care: No Code: 32589 (12+)
[2016-08-11] MEDS: CEFTRIAXONE 1 GM in D5W 100 ML IV SCH (19:35)
[2016-08-11] MEDS ORDERED: TEMAZEPAM 15 MG CAP PO PRN (21:23)
[2016-08-11] MEDS: ENOXAPARIN 80 MG/0.8 ML PFS SQ SCH (21:34)
[2016-08-12] MEDS: Albuterol/Ipratropium Neb 3 ML NEB NEB SCH ×4 (01:48→19:47)
[2016-08-12] MEDS: PANTOPRAZOLE 40 MG TAB PO SCH (05:25)
[2016-08-12] MEDS: REGULAR INSULIN 100 UNITS/ML - 3 ML VIAL SQ SCH ×3 (05:25→17:27)
[2016-08-12] MEDS: METHYLPREDNISOLONE 125 MG/2 ML VIAL IV SCH ×2 (05:25→11:35)
[2016-08-12 06:29] LABS: BLOOD UREA NITROGEN 48 MG/DL (9-20); CALCIUM 8.9 MG/DL (8.4-10.2); CALCULATED OSMOLALITY 287 MOs/Kg (270-290); CHLORIDE 100 mEq/L (98-107); GLUCOSE 200 MG/DL (70-99); SODIUM LEVEL 139 mEq/L (137-146)
[2016-08-12 06:37] LABS: MPV 8.9 fL (7.4-10.4)
[2016-08-12] MEDS: GUAIFENESIN 600 MG LA TAB PO SCH ×2 (07:55→22:01)
[2016-08-12] MEDS: FLUTICASONE PROPIONATE 16 GM BOT NAS SCH (07:55)
[2016-08-12] MEDS: CARVEDILOL 12.5 MG TAB PO SCH ×2 (07:55→22:01)
[2016-08-12] MEDS: CLOPIDOGREL 75 MG TAB PO SCH (07:55)
[2016-08-12] MEDS: AMLODIPINE 10 MG TAB PO SCH (07:55)
[2016-08-12] MEDS ORDERED: FUROSEMIDE 40 MG/4 ML VIAL IV SCH (09:00)
[2016-08-12] MEDS: Levofloxacin 750 mg/150 ml D5W 750 MG/150 ML RTU IV SCH (17:27)
--- NOTE | 2016-08-12 17:30 | GENMEDPROG ---
Subjective Note: Patient in chair responsive follows commands. Breathing improved, still dyspneic with exertion still coughing producing fair amount thick sputum. Ambulating around the room. Tolerated CPAP machine last night for about 4 hours. Still coughing producing fair amount thick sputum no hemoptysis. Denies any pains. P.o. intake better. Notes Reviewed: Yes Events from last night noted and discussed with Clinical Staff Current Medication List: Reviewed Currently: Reports: Cough, Wheezing, VIZCAINO, SOB, Sputum, Reflux Sx DVT Prophylaxis: Yes - Physical Examination Vital Signs and I&O: Last Vital Signs Temp 97.7 F 08/12/16 14:00 Pulse 64 08/12/16 14:00 Resp 18 08/12/16 14:00 BP 139/67 08/12/16 14:00 Pulse Ox 93 08/12/16 14:00 Oxygen Pulse Oxygen Saturation 93 O2 Device Nasal Cannula Oxygen Flow Rate 3 Fraction of Inspired Oxygen ( 35 FIO2) Intake & Output 08/09/16 08/10/16 08/11/16 08/12/16 23:59 23:59 23:59 23:59 Intake Total 85 1080 1185 928 Output Total 450 1700 1651 1175 Balance -365 -620 -466 -247 Patient's weight 153.496 kg 153.966 kg 154.902 kg General: Alert, Oriented x3, Cooperative, No acute distress HEENT: Normal, PERRLA, EOMI, Anicteric Sclera Neck: Non-tender, Normal Trachea alignment, Normal inspection, Limited range of motion, JVD Lymphatics: Normal Respiratory: Diminished, Rhonchi, Wheezes Cardiovascular: Regular rate, Normal S1, Normal S2, Murmurs GI: Normal bowel sounds, Soft, Non tender, No hepatospenomegaly, No masses Extremities/Musculoskeletal: Edema, Clubbing, Cyanosis, DJD Skin: Warm,Dry and Intact, No rashes, No breakdown Neurological: Normal speech, Cranial nerves 3-12 NL Psych/Mental Status: Anxious Lab/DI/Studies Reviewed: Allergies MERCURECHROME Allergy (Uncoded 08/09/16 17:23) See Comments CAUSED SORES TO GET INFECTED METHIOLADE Allergy (Uncoded 08/09/16 17:23) See Comments CAUSED SORES TO GET INFECTED 08/12/16 05:10 08/12/16 05:10 Abnormal Lab Results 08/11/16 08/12/16 08/12/16 23:45 05:10 05:10 RBC 4.32 L Hgb 13.1 L Hct 40.4 L MCHC 32.4 L RDW 14.7 H BUN 48 H Creatinine 1.90 H Estimated GFR (MDRD) 36 L Glucose 200 H POC Capillary Glucose 158 H 08/12/16 08/12/16 08/12/16 05:24 11:20 16:19 RBC Hgb Hct MCHC RDW BUN Creatinine Estimated GFR (MDRD) Glucose POC Capillary Glucose 195 H 224 H 153 H - Assessment (1) Acute respiratory failure with hypoxia Acute J96.01 - ACUTE RESPIRATORY FAILURE WITH HYPOXIA Comment/Plan: Continue O2 nebs and pulmonary toilet. Monitor pulmonary status. Clinically improving on maximal pulmonary therapy (2) Bilateral pneumonia Acute J18.9 - PNEUMONIA, UNSPECIFIED ORGANISM Qualifiers: Pneumonia type: due to unspecified organism Aspiration pneumonia type: A Lung location: L Comment/Plan: Continue broad-spectrum antibiotics nebulized bronchodilators and mucolytics (3) CHF (congestive heart failure) Acute I50.9 - HEART FAILURE, UNSPECIFIED Qualifiers: Congestive heart failure type: diastolic Congestive heart failure chronicity: acute on chronic Qualified Code(s): I50.33 - Acute on chronic diastolic (congestive) heart failure Comment/Plan: Continue salt restriction monitor weight continue hydralazine. (4) Hypertension Chronic I10 - ESSENTIAL (PRIMARY) HYPERTENSION Qualifiers: Hypertension type: essential hypertension Qualified Code(s): I10 - Essential (primary) hypertension Comment/Plan: Continue home antihypertensive medications. (5) CKD (chronic kidney disease) stage 2, GFR 60-89 ml/min Chronic N18.2 - CHRONIC KIDNEY DISEASE, STAGE 2 (MILD) Comment/Plan: Single kidney. Monitor renal function avoid any nephrotoxins. Hold Lasix (6) CAD (coronary artery disease) Acute I25.10 - ATHSCL HEART DISEASE OF [place] CORONARY ARTERY W/O ANG PCTRS Qualifiers: Coronary Disease-Associated Artery/Lesion type: [place] artery [place] vs. transplanted heart: [place] heart Associated angina: without angina Qualified Code(s): I25.10 - Atherosclerotic heart disease of [place] coronary artery without angina pectoris Comment/Plan: Continue home regimen of aspirin Plavix and Coreg. (7) Dyslipidemia Chronic E78.5 - HYPERLIPIDEMIA, UNSPECIFIED Comment/Plan: Continue statin (8) FADIA (obstructive sleep apnea) Acute G47.33 - OBSTRUCTIVE SLEEP APNEA (ADULT) (PEDIATRIC) Comment/Plan: [place] CPAP therapy at night Case Care Discussed with: Patient, Consultants, Family, Nursing Staff Education/Counseling Given To: Patient Education/Counseling Given Regarding: Diagnosis, Treatment, Prognosis, Follow Up Total Time: 50 min . Critical Care: No Code: 05937 (12+)
[2016-08-12 18:42] LABS: BLOOD UREA NITROGEN 57 MG/DL (9-20); CALCULATED OSMOLALITY 288 MOs/Kg (270-290); CHLORIDE 101 mEq/L (98-107); GLUCOSE 179 MG/DL (70-99); SODIUM LEVEL 139 mEq/L (137-146)
--- NOTE | 2016-08-12 18:51 | PCM.PULM ---
Chief Complaint: Uneventful overnight patient has been relatively stable ambulating today denies any hemoptysis - Physical Examination Vital Signs and I&O: Last Vital Signs Temp 97.9 F 08/12/16 18:00 Pulse 68 08/12/16 18:00 Resp 18 08/12/16 18:00 BP 120/53 L 08/12/16 18:00 Pulse Ox 92 08/12/16 18:00 Oxygen Pulse Oxygen Saturation 92 O2 Device Nasal Cannula Oxygen Flow Rate 3 Fraction of Inspired Oxygen ( 35 FIO2) Intake & Output 08/09/16 08/10/16 08/11/16 08/12/16 23:59 23:59 23:59 23:59 Intake Total 85 1080 1185 1128 Output Total 450 1700 1651 1175 Balance -365 -620 -466 -47 Patient's weight 153.496 kg 153.966 kg 154.902 kg General: Alert, Oriented x3, Cooperative, No acute distress, Well appearing, Well nourished, Obese Respiratory: Diminished, Rhonchi, Wheezes (Occasional) Cardiovascular: Regular rate, Regular rate and rhythm, Normal S1, No Gallops, Rubs/Murmurs, Normal S2, Good Pedal Pulses GI: Normal bowel sounds, Soft, Non tender, No hepatospenomegaly, No masses Extremities/Musculoskeletal: Normal pulses, Edema (trace BLEs) Skin: Warm,Dry and Intact, No rashes, No breakdown, No significant lesion Neurological: Normal Steady Gait, Normal speech, Strength at 5/5 X4 ext, Cranial nerves 3-12 NL Psych/Mental Status: Appropriate Result Diagrams: 08/12/16 05:10 08/12/16 18:20 Labs (last 24 hours): Laboratory Results - last 24 hr 08/11/16 08/12/16 08/12/16 23:45 05:10 05:10 WBC 8.5 RBC 4.32 L Hgb 13.1 L Hct 40.4 L MCV 93 MCH 30.2 MCHC 32.4 L RDW 14.7 H Plt Count 159 MPV 8.9 Sodium 139 Potassium 4.3 Chloride 100 Carbon Dioxide 29 Anion Gap 14 BUN 48 H Creatinine 1.90 H Estimated GFR (MDRD) 36 L Glucose 200 H POC Capillary Glucose 158 H Calculated Osmolality 287 Calcium 8.9 Magnesium 2.30 08/12/16 08/12/16 08/12/16 05:24 11:20 16:19 WBC RBC Hgb Hct MCV MCH MCHC RDW Plt Count MPV Sodium Potassium Chloride Carbon Dioxide Anion Gap BUN Creatinine Estimated GFR (MDRD) Glucose POC Capillary Glucose 195 H 224 H 153 H Calculated Osmolality Calcium Magnesium 08/12/16 18:20 WBC RBC Hgb Hct MCV MCH MCHC RDW Plt Count MPV Sodium 139 Potassium 4.5 Chloride 101 Carbon Dioxide 29 Anion Gap 14 BUN 57 H Creatinine 1.90 H Estimated GFR (MDRD) 36 L Glucose 179 H POC Capillary Glucose Calculated Osmolality 288 Calcium 9.0 Magnesium - Assessment/Plan (1) Acute respiratory failure with hypoxia Acute J96.01 - ACUTE RESPIRATORY FAILURE WITH HYPOXIA Comment/Plan: Patient has been doing fairly well and therefore is placed on Solu-Medrol 40 mg IV q.8 hours continue with supportive care Rocephin Levaquin nebulizers continue DVT and GI prophylaxis . the patient as needed patient is going to need an outpatient sleep study and pulmonary function test (2) Bilateral pneumonia Acute J18.9 - PNEUMONIA, UNSPECIFIED ORGANISM due to unspecified organism A L Comment/Plan: Continue Rocephin and Levaquin for now would go ahead and check chest x-ray and a blood gas in the morning (3) CHF (congestive heart failure) Acute I50.9 - HEART FAILURE, UNSPECIFIED diastolic acute on chronic I50.33 - Acute on chronic diastolic (congestive ) heart failure Comment/Plan: Continue gentle diuresis (4) Obstructive sleep apnea (adult) (pediatric) Acute G47.33 - OBSTRUCTIVE SLEEP APNEA (ADULT) (PEDIATRIC) Comment/Plan: Patient is going to need an outpatient sleep study would continue BiPAP while the patient is sleeping and he was encouraged to use tumor BiPAP all night (5) Obstructive sleep apnea (adult) (pediatric) Acute G47.33 - OBSTRUCTIVE SLEEP APNEA (ADULT) (PEDIATRIC) Comment/Plan: given his baseline heart issues I would continue the BiPAP while the patient is sleeping here in the hospital and would get a sleep study done as an outpatient patient was informed about the risk that he has by virtue of having sleep apnea I personally saw and evaluated the patient.: Yes Case Care Discussed with: Patient Education/Counseling Given To: Patient Education/Counseling Given Regarding: Diagnosis, Treatment, Prognosis, Follow Up , Disposition Plan
[2016-08-12] MEDS: CEFTRIAXONE 1 GM in D5W 100 ML IV SCH (19:36)
[2016-08-12] MEDS: METHYLPREDNISOLONE 40 MG/1 ML VIAL IV SCH (19:39)
[2016-08-12] MEDS: ENOXAPARIN 80 MG/0.8 ML PFS SQ SCH (22:01)
[2016-08-13] MEDS: REGULAR INSULIN 100 UNITS/ML - 3 ML VIAL SQ SCH ×3 (01:08→11:40)
[2016-08-13] MEDS: Albuterol/Ipratropium Neb 3 ML NEB NEB SCH ×2 (01:37→08:47)
[2016-08-13] MEDS: METHYLPREDNISOLONE 40 MG/1 ML VIAL IV SCH ×2 (04:11→11:38)
[2016-08-13] MEDS: PANTOPRAZOLE 40 MG TAB PO SCH (05:06)
[2016-08-13 05:23] LABS: ALLEN'S TEST PASS; BEb 2.8 (+/- 2); TCO2 32.9 MMOL/L (23-27)
[2016-08-13] MEDS ORDERED: ISOSORBIDE MONONITRATE 30 MG TAB PO SCH (06:00)
[2016-08-13 06:16] LABS: ABG Draw Site Right Radial
--- NOTE | 2016-08-13 07:28 | DIRPT ---
CLINICAL DATA: Respiratory failure EXAM: PORTABLE CHEST 1 VIEW COMPARISON: PA and lateral chest x-ray of August 10, 2016 FINDINGS: The lungs are well-expanded. There is minimal subsegmental atelectasis at the right lung base. The cardiac silhouette is mildly enlarged. The pulmonary vascularity is less engorged. The mediastinum is normal in width. The trachea is midline. The bony thorax exhibits no acute abnormality. IMPRESSION: Slight interval improvement in pulmonary vascular congestion. Atelectasis or infiltrate persists at the right lung base but has improved on the left. Electronically Signed By: Christiano Davis M.D. On: 08/13/2016 07:25
[2016-08-13 07:36] LABS: BLOOD UREA NITROGEN 54 MG/DL (9-20); CALCULATED OSMOLALITY 294 MOs/Kg (270-290); CHLORIDE 101 mEq/L (98-107); GLUCOSE 203 MG/DL (70-99); SODIUM LEVEL 142 mEq/L (137-146)
[2016-08-13 07:37] LABS: MPV 8.5 fL (7.4-10.4)
--- NOTE | 2016-08-13 07:52 | PCM.PULM ---
Chief Complaint: Acute respiratory failure with hypoxia Pneumonia CHF Obstructive sleep apnea Uneventful overnight patient breathing is some better. Still has a complaint of cough, sputum, wheeze and shortness of breath. Current medication list and notes reviewed:yes, Events from last night noted and discussed with Clinical Staff - Physical Examination Vital Signs and I&O: Last Vital Signs Temp 97.1 F L 08/13/16 05:05 Pulse 59 L 08/13/16 05:05 Resp 20 08/13/16 05:05 BP 128/67 08/13/16 05:05 Pulse Ox 96 08/13/16 05:05 Oxygen Pulse Oxygen Saturation 96 O2 Device Nasal Cannula Oxygen Flow Rate 2 Fraction of Inspired Oxygen ( 40 FIO2) Intake & Output 08/10/16 08/11/16 08/12/16 08/13/16 23:59 23:59 23:59 23:59 Intake Total 1080 1185 1128 417 Output Total 1700 1651 1175 300 Balance -620 -466 -47 117 Patient's weight 153.496 kg 153.966 kg 154.902 kg 156.036 kg General: Alert, Oriented x3, Cooperative, No acute distress, Obese Respiratory: Diminished, Rhonchi, Wheezes (mild occasionally) Cardiovascular: Regular rate, Regular rate and rhythm, Normal S1, No Gallops, Rubs/Murmurs, Normal S2 GI: Normal bowel sounds, Soft, Non tender, No hepatospenomegaly, No masses, Obese Extremities/Musculoskeletal: Normal pulses, Swelling Skin: Warm,Dry and Intact, No rashes, No significant lesion Neurological: Normal Steady Gait, Normal speech, Strength at 5/5 X4 ext, Normal tone, Cranial nerves 3-12 NL Psych/Mental Status: Normal Affect Result Diagrams: 08/13/16 05:40 08/13/16 06:27 Labs (last 24 hours): Laboratory Results - last 24 hr 08/13/16 08/13/16 08/13/16 00:03 05:03 05:16 Puncture Site Right radial pH 7.300 L pCO2 63.0 H pO2 68.0 L HCO3 31.0 H Total CO2 32.9 H Base Excess 2.8 H FiO2 % 2 lpm nc Specimen Drawn By Kaytr Sodium Potassium Chloride Carbon Dioxide Anion Gap BUN Creatinine Estimated GFR (MDRD) Glucose POC Capillary Glucose 174 H 185 H Calculated Osmolality Calcium Magnesium 08/13/16 06:27 Puncture Site pH pCO2 pO2 HCO3 Total CO2 Base Excess FiO2 % Specimen Drawn By Sodium 142 Potassium 4.5 Chloride 101 Carbon Dioxide 31 Anion Gap 15 BUN 54 H Creatinine 1.70 H Estimated GFR (MDRD) 41 L Glucose 203 H POC Capillary Glucose Calculated Osmolality 294 H Calcium 9.0 Magnesium 2.50 H Lab/DI/Studies Reviewed: EKG: NSR, NO ST or ST wave changes noted Cxray: 1 view Slight interval improvement in pulmonary vascular congestion. Atelectasis or infiltrate persists at the right lung base but has improved on the left. Medications Carvedilol (Coreg) 12.5 mg PO BID [facility] Stop: 08/23/16 20:59 Last Admin: 08/10/16 20:26 Dose: 12.5 mg Clopidogrel Bisulfate (Plavix) 75 mg PO DAILY [facility] Stop: 08/24/16 08:59 Last Admin: 08/10/16 09:06 Dose: 75 mg Pantoprazole Sodium (Protonix) 40 mg PO 0600 [facility] Stop: 08/24/16 16:59 Last Admin: 08/11/16 04:37 Dose: 40 mg Acetaminophen (Tylenol Tablet) 650 mg PO Q6H PRN PRN Reason: Mild Pain or Fever Stop: 08/23/16 16:59 Last Admin: 08/10/16 12:35 Dose: 650 mg Albuterol/Ipratropium (Duoneb) 3 ml NEB Q2H PRN PRN Reason: Wheezing Stop: 08/23/16 16:59 Last Admin: 08/10/16 23:09 Dose: 3 ml Albuterol/Ipratropium (Duoneb) 3 ml NEB RTQ6 [facility] Stop: 08/24/16 16:59 Last Admin: 08/11/16 09:01 Dose: 3 ml Amlodipine Besylate (Norvasc) 10 mg PO DAILY [facility] Stop: 08/24/16 08:59 Last Admin: 08/10/16 09:06 Dose: 10 mg Ceftriaxone Sodium 1 gm/ (Dextrose) 100 mls @ 100 mls/hr IV Q24H [facility] Stop: 08/17/16 19:59 Last Admin: 08/10/16 20:16 Dose: 100 mls/hr Enoxaparin Sodium (Lovenox) 75 mg SQ Q24H [facility] Stop: 08/23/16 21:59 Last Admin: 08/10/16 20:28 Dose: 75 mg Furosemide (Lasix) 40 mg IV Q12H [facility] Stop: 08/24/16 17:59 Last Admin: 08/11/16 04:31 Dose: 40 mg Guaifenesin (Mucinex) 1,200 mg PO Q12 [facility] Stop: 08/24/16 16:59 Last Admin: 08/10/16 20:24 Dose: 1,200 mg Levofloxacin/Dextrose (Levaquin 750 Mg) 750 mg in 150 mls @ 100 mls/hr IV Q24H [facility] Stop: 08/17/16 17:59 Last Admin: 08/10/16 17:46 Dose: 100 mls/hr Insulin Human Regular (Humulin R) 0 units SQ Q6 [facility] PRN Reason: Protocol Stop: 08/24/16 16:59 Last Admin: 08/11/16 05:27 Dose: Not Given Pravastatin Sodium (Pravachol) 40 mg PO TUFR [facility] Stop: 08/24/16 20:59 Last Admin: 08/10/16 20:24 Dose: 40 mg Oxycodone HCl (Oxycodone Immediate Release (Oxyir)) 5 mg PO Q4H PRN PRN Reason: Moderate to Severe Pain Stop: 08/24/16 16:59 Ondansetron HCl (Zofran) 4 mg IV Q6H PRN PRN Reason: Nausea/Vomiting Stop: 08/23/16 16:59 Nitroglycerin (Ntg (Nitrostat Sublingual Tab)) 0.4 mg SL Q5M PRN PRN Reason: Chest Pain or Discomfort Stop: 08/23/16 18:58 Methylprednisolone Sodium Succinate (Solu-Medrol) 40 mg IV Q8H [facility] Stop: 08/26/16 19:59 Last Admin: 08/13/16 04:11 Dose: 40 mg - Assessment/Plan (1) Acute respiratory failure with hypoxia Resolved J96.01 - ACUTE RESPIRATORY FAILURE WITH HYPOXIA Comment/Plan: Patient has been uneventful overnight. Patient has been doing fairly well and therefore steroids would be continued continue with supportive care Rocephin Levaquin nebulizers continue DVT and GI prophylaxis . the patient as needed patient is going to need an outpatient sleep study and pulmonary function test (2) Bilateral pneumonia Acute J18.9 - PNEUMONIA, UNSPECIFIED ORGANISM due to unspecified organism A L Comment/Plan: Continue Rocephin and Levaquin for now (3) CHF (congestive heart failure) Acute I50.9 - HEART FAILURE, UNSPECIFIED diastolic acute on chronic I50.33 - Acute on chronic diastolic (congestive ) heart failure Comment/Plan: Continue gentle diuresis chest x-ray shows improvement (4) Obstructive sleep apnea (adult) (pediatric) Acute G47.33 - OBSTRUCTIVE SLEEP APNEA (ADULT) (PEDIATRIC) Comment/Plan: Patient is going to need an outpatient sleep study would continue BiPAP while the patient is sleeping and he was encouraged to use BiPAP most of the night (5) Obstructive sleep apnea (adult) (pediatric) Acute G47.33 - OBSTRUCTIVE SLEEP APNEA (ADULT) (PEDIATRIC) Comment/Plan: would continue the BiPAP while the patient is sleeping here in the hospital and would get a sleep study done as an outpatient patient was informed about the risk that he has by virtue of having sleep apnea
[2016-08-13] MEDS: GUAIFENESIN 600 MG LA TAB PO SCH (08:43)
[2016-08-13] MEDS: CLOPIDOGREL 75 MG TAB PO SCH (08:43)
[2016-08-13] MEDS: AMLODIPINE 10 MG TAB PO SCH (08:43)
[2016-08-13] MEDS: CARVEDILOL 12.5 MG TAB PO SCH (08:44)
[2016-08-13] MEDS: FLUTICASONE PROPIONATE 16 GM BOT NAS SCH (08:44)
[2016-08-13 09:20] VITALS: BP 129/62; PULSE 59; TEMP 97.9
--- NOTE | 2016-08-13 13:19 | PCM.DCS92 ---
- Final/Secondary Discharge Diagnosis (1) Acute respiratory failure with hypoxia Resolved J96.01 - ACUTE RESPIRATORY FAILURE WITH HYPOXIA Present on Admission: Yes Comment: Continue O2 nebs and pulmonary toilet. Monitor pulmonary status. Clinically improving on maximal pulmonary therapy (2) Bilateral pneumonia Acute J18.9 - PNEUMONIA, UNSPECIFIED ORGANISM Present on Admission: Yes due to unspecified organism A L Comment: Continue broad-spectrum antibiotics nebulized bronchodilators and mucolytics (3) CHF (congestive heart failure) Acute I50.9 - HEART FAILURE, UNSPECIFIED Present on Admission: Yes diastolic acute on chronic I50.33 - Acute on chronic diastolic (congestive ) heart failure Comment: Continue salt restriction monitor weight continue hydralazine. (4) Hypertension Chronic I10 - ESSENTIAL (PRIMARY) HYPERTENSION essential hypertension I10 - Essential (primary) hypertension Comment: Continue home antihypertensive medications. (5) CKD (chronic kidney disease) stage 2, GFR 60-89 ml/min Chronic N18.2 - CHRONIC KIDNEY DISEASE, STAGE 2 (MILD) Present on Admission: Yes Comment: Single kidney. Monitor renal function avoid any nephrotoxins. Hold Lasix (6) CAD (coronary artery disease) Acute I25.10 - ATHSCL HEART DISEASE OF [place] CORONARY ARTERY W/O ANG PCTRS [place] artery [place] heart without angina I25.10 - Atherosclerotic heart disease of [place] coronary artery without angina pectoris Comment: Continue home regimen of aspirin Plavix and Coreg. (7) Dyslipidemia Chronic E78.5 - HYPERLIPIDEMIA, UNSPECIFIED Present on Admission: Yes Comment: Continue statin (8) FADIA (obstructive sleep apnea) Chronic G47.33 - OBSTRUCTIVE SLEEP APNEA (ADULT) (PEDIATRIC) Present on Admission: Yes Comment: CONTINUE CPAP AT HOME. Follow up with Pulmonary in regard to sleep apnea and sleep study Discharge Disposition: Home Discharge Condition: Improved Cognitive Discharge Status: Unimpaired Fuctional Discharge Status: Walker Assistance Physician Follow up/Referrals: Tatiana Cartagena NP [Primary Care Provider] - 08/20/16 10:00 am Mukund Medina MD [Staff Physician] - One Week Home Medications / New Prescriptions: New Amoxicillin/Potassium Clav [Augmentin 875-125 Tablet] 1 each PO TIDAC #15 tablet Guaifenesin [Mucinex] 1,200 mg PO BID #20 tbmp.12hr Isosorbide Mononitrate [Imdur] 30 mg PO DAILY #90 tab Levofloxacin [Levaquin] 750 mg PO DAILY #5 tablet Prednisone 10 mg PO DAILY #30 tab.ds.pk Albuterol/Ipratropium Neb [Duoneb] 3 ml NEB Q6H #120 nebu Continue Amlodipine Besylate 10 mg PO DAILY Furosemide [Lasix] 20 mg PO DAILY PRN PRN Reason: Edema Clopidogrel Bisulfate [Plavix] 75 mg PO DAILY Nitroglycerin [Nitrostat] 0.4 mg SL Q5M PRN PRN Reason: Chest Pain Or Discomfort Pravastatin [Pravachol] 40 mg PO TUFR Aspirin (Enteric Coated) [Ecotrin] 81 mg PO DAILY Carvedilol [Coreg] 12.5 mg PO BID HydrALAZINE (Cardiovascular) [Apresoline] 75 mg PO BID Discontinued Ibuprofen Tablet [Motrin] 600 mg PO Q6H PRN PRN Reason: Pain O2 Device: Nasal Cannula Oxygen to be used after Discharge: Continuous Diet at Discharge: Cardiac, Heart Healthy, Low Salt, High Fiber Activity: As Tolerated Call Office For: Worsening Symptoms, Fever over 101 F Discontinue use of:: Alcohol, All Illegal Substances, All Types of Tobacco - DC Summary Notes Hospital Course Note:: Discharge summary on patient named JEREMIAS LORD admitted to [facility] on 08/09/16 by Charles Castelan MD. Date of discharge is []. Patient was initially brought to emergency room on August 09 for evaluation of worsening difficulties breathing, chest tightness and wheezing, cough productive thick yellowish greenish sputum. Please refer the admission for further details. Upon arrival in ED patient was found to be in moderate respiratory distress hypoxic tachypneic and tachycardic, his initial PaO2 was [address] was [address] chest showed bilateral lower lobe infiltrates likely infectious small mediastinal lymph nodes CAD and thoracic spondylosis. Patient was admitted to medical monitor bed treatment with supplemental O2 nebulized bronchodilators and IV antibiotics was instituted. Due to significant bronchospasm and bronchorrhea patient required IV steroids. He he was found severely fluid overloaded and required iv diuretic as well. Patient was seen consultation by internet systems administrator and pulmonary regimen was optimized. Given body habitus and inflow obtained from patient spouse strong suspicion for sleep apnea was raised. Treatment of nocturnal CPAP was instituted and patient responded to this device very well. His pulmonary status has very slowly and progressively improved and stabilized. Once in-hospital he did sustain slight bump in his creatinine which has peaked at 1.9. Diuretic was withheld at that point and creatinine has normalized. Of note is that patient has single kidney and his baseline creatinine is 1.6. He was gradually weaned down to 2 L nasal cannula and has qualify for home O2 with exercise induced desaturations to 86% .. 2D echo was obtained on this admission which showed normal LV systolic function with EF of 60 65%, impaired relaxation. He was gradually weaned off IV steroids. boning room worker was involved in patient care and arrangements for home CPAP and nebulizer and oxygen were made prior to discharge. Appointment with internet systems administrator regarding post discharge care and sleep study was made for the patient prior to discharge.. On August 13 patient was cleared for discharge by the Pulmonary and in clinically stable improved condition he has been discharged home to the care of the family and his PCP. Patient and sister were kept fully abreast on clinical progression regular daily basis. Total Time: 45 min . Code: 52828 (>30min.) - Physical Exam Vital Signs: Last Vital Signs Temp 97.9 F 08/13/16 09:19 Pulse 59 L 08/13/16 09:19 Resp 20 08/13/16 09:19 BP 129/62 08/13/16 09:19 Pulse Ox 96 08/13/16 12:40 Oxygen Pulse Oxygen Saturation 96 O2 Device Nasal Cannula Oxygen Flow Rate 2 Fraction of Inspired Oxygen ( 40 FIO2) Constitutional: Alert (Awake, Fully oriented, well appearing. No apparent distress) Oriented to: Time, Person, Place - HEENT Head: Normal (normocephalic,atraumatic, trachea midline) Eye: Normal (EOMI, Sclera white) Oropharynx: Normal (moist) ENT EAC: Normal TMJ: Normal Nose: No Symptoms Reported (without discharge or bleeding) - Respiratory/Cardiovascular Respiratory: Diminished, Rhonchi, Wheezes Cardiovascular: Normal, Systolic murmur - GI Palpation: Normal (soft, non distended and nontender) Tenderness: Non tender Rectal Exam: Deferred - Musculoskeletal Back: Normal Extremities: Normal, Edema (He has 1 to 2+ tight pitting edema in his bilateral lower extremities. He and his tell me this is very normal for him.) - Integumentary Skin: Normal, Warm, Dry Lymphatics: Normal - Neurologic Memory Impaired: Normal Motor Function: Normal Cranial Nerve: Normal Cerebellar: Normal Mood Description: Normal (Fully oriented and appropiate affect), Anxious Thought: Coherent Perception: Normal - Other Exam Other Exam Findings: Last Vital Signs Temp 97.9 F 08/13/16 09:19 Pulse 59 L 08/13/16 09:19 Resp 20 08/13/16 09:19 BP 129/62 08/13/16 09:19 Pulse Ox 96 08/13/16 12:40 Allergies MERCURECHROME Allergy (Uncoded 08/09/16 17:23) See Comments CAUSED SORES TO GET INFECTED METHIOLADE Allergy (Uncoded 08/09/16 17:23) See Comments CAUSED SORES TO GET INFECTED 08/13/16 05:40 08/13/16 06:27 Abnormal Lab Results 08/12/16 08/12/16 08/13/16 16:19 18:20 00:03 RBC Hgb Hct MCHC pH pCO2 pO2 HCO3 Total CO2 Base Excess BUN 57 H Creatinine 1.90 H Estimated GFR (MDRD) 36 L Glucose 179 H POC Capillary Glucose 153 H 174 H Calculated Osmolality Magnesium 08/13/16 08/13/16 08/13/16 05:03 05:16 05:40 RBC 4.45 L Hgb 13.5 L Hct 41.2 L MCHC 32.8 L pH 7.300 L pCO2 63.0 H pO2 68.0 L HCO3 31.0 H Total CO2 32.9 H Base Excess 2.8 H BUN Creatinine Estimated GFR (MDRD) Glucose POC Capillary Glucose 185 H Calculated Osmolality Magnesium 08/13/16 08/13/16 06:27 11:25 RBC Hgb Hct MCHC pH pCO2 pO2 HCO3 Total CO2 Base Excess BUN 54 H Creatinine 1.70 H Estimated GFR (MDRD) 41 L Glucose 203 H POC Capillary Glucose 159 H Calculated Osmolality 294 H Magnesium 2.50 H Discharge Home Medication List Amlodipine Besylate 10 mg PO DAILY 11/23/12 [History Confirmed 08/09/16] Clopidogrel Bisulfate [Plavix] 75 mg PO DAILY 09/11/15 [History Confirmed ] Furosemide [Lasix] 20 mg PO DAILY PRN 09/11/15 [History Confirmed 08/09/16] Nitroglycerin [Nitrostat] 0.4 mg SL Q5M PRN 09/11/15 [History Confirmed 08/09/16 ] Aspirin (Enteric Coated) [Ecotrin] 81 mg PO DAILY 12/28/15 [History Confirmed ] Pravastatin [Pravachol] 40 mg PO TUFR 12/28/15 [History Confirmed 08/09/16] Carvedilol [Coreg] 12.5 mg PO BID 05/21/16 [History Confirmed 08/09/16] HydrALAZINE (Cardiovascular) [Apresoline] 75 mg PO BID 08/09/16 [History Confirmed 08/09/16] Albuterol/Ipratropium Neb [Duoneb] 3 ml NEB Q6H #120 nebu 08/13/16 [Rx] Amoxicillin/Potassium Clav [Augmentin 875-125 Tablet] 1 each PO TIDAC #15 tablet 08/13/16 [Rx] Guaifenesin [Mucinex] 1,200 mg PO BID #20 tbmp.12hr 08/13/16 [Rx] Isosorbide Mononitrate [Imdur] 30 mg PO DAILY #90 tab 08/13/16 [Rx] Levofloxacin [Levaquin] 750 mg PO DAILY #5 tablet 08/13/16 [Rx] Prednisone 10 mg PO DAILY #30 tab.ds.pk 08/13/16 [Rx] New Discharge Medications (Rx) Albuterol/Ipratropium Neb [Duoneb] 3 ml NEB Q6H #120 nebu 08/13/16 [Rx] Amoxicillin/Potassium Clav [Augmentin 875-125 Tablet] 1 each PO TIDAC #15 tablet 08/13/16 [Rx] Guaifenesin [Mucinex] 1,200 mg PO BID #20 tbmp.12hr 08/13/16 [Rx] Isosorbide Mononitrate [Imdur] 30 mg PO DAILY #90 tab 08/13/16 [Rx] Levofloxacin [Levaquin] 750 mg PO DAILY #5 tablet 08/13/16 [Rx] Prednisone 10 mg PO DAILY #30 tab.ds.pk 08/13/16 [Rx] Home Medications Amlodipine Besylate 10 mg PO DAILY 11/23/12 Clopidogrel Bisulfate [Plavix] 75 mg PO DAILY 09/11/15 Furosemide [Lasix] 20 mg PO DAILY PRN 09/11/15 Nitroglycerin [Nitrostat] 0.4 mg SL Q5M PRN 09/11/15 Aspirin (Enteric Coated) [Ecotrin] 81 mg PO DAILY 12/28/15 Pravastatin [Pravachol] 40 mg PO TUFR 12/28/15 Carvedilol [Coreg] 12.5 mg PO BID 05/21/16 HydrALAZINE (Cardiovascular) [Apresoline] 75 mg PO BID 08/09/16 Albuterol/Ipratropium Neb [Duoneb] 3 ml NEB Q6H #120 nebu 08/13/16 Amoxicillin/Potassium Clav [Augmentin 875-125 Tablet] 1 each PO TIDAC #15 tablet 08/13/16 Guaifenesin [Mucinex] 1,200 mg PO BID #20 tbmp.12hr 08/13/16 Isosorbide Mononitrate [Imdur] 30 mg PO DAILY #90 tab 08/13/16 Levofloxacin [Levaquin] 750 mg PO DAILY #5 tablet 08/13/16 Prednisone 10 mg PO DAILY #30 tab.ds.pk 08/13/16 08/13/16 05:40 08/13/16 06:27
== END 2016-08-13 15:34 | disposition home or self-care (01) | DRG 193 ==
LOC: ED 17:05 → MPS3 19:03
PROVIDERS: ADMIT Internal Medicine; ATTEND Internal Medicine
PROC: 039B3ZZ Drainage of Right Radial Artery, Percutaneous Approach (ICD-10-PCS; principal; 2016-08-09)
DX: J18.9 Pneumonia, unspecified organism (principal); J96.01 Acute respiratory failure with hypoxia; I50.33 Acute on chronic diastolic (congestive) heart failure; E66.2 Morbid (severe) obesity with alveolar hypoventilation; Z68.41 Body mass index [BMI] 40.0-44.9, adult; I12.9 Hypertensive chronic kidney disease with stage 1 through stage 4 chronic kidney disease, or unspecified chronic kidney disease; N18.2 Chronic kidney disease, stage 2 (mild); I25.10 Atherosclerotic heart disease of native coronary artery without angina pectoris; E78.5 Hyperlipidemia, unspecified; I25.2 Old myocardial infarction; E78.00 Pure hypercholesterolemia, unspecified; Z85.528 Personal history of other malignant neoplasm of kidney; Z90.5 Acquired absence of kidney; M19.90 Unspecified osteoarthritis, unspecified site; Z88.8 Allergy status to other drugs, medicaments and biological substances; Z79.899 Other long term (current) drug therapy; Z79.82 Long term (current) use of aspirin
CPT/HCPCS: 36415; 36600; 71010; 71020; 71250; 80048; 80053; 81001; 82803; 82962; 83605; 83735; 84484; 85025; 85027; 85610; 85730; 87040; 87070; 87086; 87205; 87804; 93005; 93306; 94640; 94660; 94762; 96365; 96372; 99284; G0237; J0696; J1650; J1940; J1956; J2920; J2930; J3490; J7060; J7620